=== PATIENT | female | born 1945 | race Caucasian/White ===

== ENCOUNTER → 2017-12-01 | Outpatient (CLI) | payer MEDICARE, BC ==
[~2017-12-01] MED LIST: OMNIPAQUE 350 MG/ML, 100ML BOTTLE ONE
== END | disposition home or self-care (01) ==
LOC: CFH 08:43
PROVIDERS: ATTEND Family Medicine
DX: I71.2 Thoracic aortic aneurysm, without rupture (principal)
CPT/HCPCS: 71275; 82565; Q9967

== ENCOUNTER 2018-01-20 17:22 | Emergency (ER) | payer MEDICARE, BC ==
[~2018-01-20] VITALS: Ht 180.3 cm; Wt 80.0 kg
[2018-01-20] MEDS ORDERED: LOSA1TAB25 PO (17:39)
[2018-01-20] MEDS ORDERED: SIMV5TAB5 PO (17:39)
[2018-01-20] MEDS ORDERED: ALEN70TA5 PO (17:39)
[2018-01-20] MEDS ORDERED: AMLO5TAB2 PO (17:39)
[2018-01-20] MEDS ORDERED: LEVE500T8 PO (17:39)
[2018-01-20] MEDS ORDERED: LEVO100T5 PO (17:39)
[2018-01-20] MEDS ORDERED: DIAZEPAM 5 MG TABLET ONE (18:24)
[2018-01-20 18:30] LABS: MICROSCOPIC AUTO
[2018-01-20] MEDS ORDERED: DIAZEPAM 5 MG TABLET PO ONE (18:30)
[2018-01-20 18:31] LABS: CULTURE INDICATED? NO
[2018-01-20 18:58] LABS: BASOPHILS # (AUTO) 0.03 x10^3/uL (0-0.1); BASOPHILS % (AUTO) 0 % (0-1); EOSINOPHILS # (AUTO) 0.18 x10^3/uL (0-0.4); EOSINOPHILS % (AUTO) 2 % (1-7); LYMPHOCYTES # (AUTO) 1.42 x10^3/uL (1-3.4); LYMPHOCYTES % (AUTO) 19 % (22-44); MD NO; MEAN CORPUSCULAR HEMOGLOBIN 33.3 pg (27.0-34.8); MEAN CORPUSCULAR HGB CONC 34.4 g/dL (32.4-35.8); MEAN CORPUSCULAR VOLUME 96.9 fL (80-100); MEAN PLATELET VOLUME 7.7 fL (7.4-10.4); MONOCYTES % (AUTO) 8 % (2-9); NEUTROPHILS # (AUTO) 5.22 x10^3/uL (1.8-6.8); NEUTROPHILS % (AUTO) 70 % (42-75); PLATELET COUNT 363 x10^3/uL (130-400); RED BLOOD COUNT 4.49 x10^6/uL (3.82-5.3); RED CELL DISTRIBUTION WIDTH 12.7 % (9.6-15.2)
[2018-01-20 19:08] LABS: ALANINE AMINOTRANSFERASE 22 U/L (12-78); ALBUMIN 4.4 g/dL (3.4-5.0); ANION GAP 5 mmol/L (5-15); CALCIUM 8.8 mg/dL (8.5-10.1); CHLORIDE 108 mmol/L (98-107); CREATININE 0.82 mg/dL (0.55-1.02)
[2018-01-20 19:10] LABS: ALKALINE PHOSPHATASE 61 U/L (45-117); BILIRUBIN,TOTAL 0.6 mg/dL (0.2-1.0); TOTAL PROTEIN 7.8 g/dL (6.4-8.2)
[2018-01-20 20:26] VITALS: BP 139/74
== END 2018-01-20 21:04 | disposition home or self-care (01) ==
LOC: ED 20:44
DX: R42 Dizziness and giddiness (principal); R11.0 Nausea
CPT/HCPCS: 36415; 70551; 80053; 81001; 83735; 85025; 93005; 99285

== ENCOUNTER → 2018-03-31 | Outpatient (CLI) | payer MEDICARE, BC ==
[~2018-03-31] MED LIST changes: +ALEN70TA5 PO; +AMLO5TAB2 PO; +LEVE500T8 PO; +LEVO100T5 PO; +LOSA1TAB25 PO; -OMNIPAQUE 350 MG/ML, 100ML BOTTLE ONE; +SIMV5TAB5 PO
== END | disposition home or self-care (01) ==
LOC: RAD 07:52
PROVIDERS: ATTEND Registered Nurse
DX: M50.10 Cervical disc disorder with radiculopathy, unspecified cervical region (principal)
CPT/HCPCS: 72156

== ENCOUNTER → 2018-06-08 | Outpatient (CLI) | payer MEDICARE, BC | END | disposition home or self-care (01) | LOC: CFH 08:26 | PROVIDERS: ATTEND Internal Medicine Cardiovascular Disease | DX: I08.2 Rheumatic disorders of both aortic and tricuspid valves (principal); I10 Essential (primary) hypertension; E78.5 Hyperlipidemia, unspecified | CPT/HCPCS: 93306 ==

== ENCOUNTER → 2019-11-08 | Outpatient (CLI) | payer BC ==
[~2019-11-08] MED LIST changes: -ALEN70TA5 PO; +ALEN70TA6 PO; +AMLO-150 PO; -AMLO5TAB2 PO; +SIMV5TAB14 PO; -SIMV5TAB5 PO
== END | disposition home or self-care (01) ==
LOC: CFH 08:12
PROVIDERS: ATTEND Internal Medicine Cardiovascular Disease
DX: I45.10 Unspecified right bundle-branch block (principal); I10 Essential (primary) hypertension
CPT/HCPCS: 78452; 93017; A9502

== ENCOUNTER → 2020-08-22 | Outpatient (CLI) | payer BC ==
[~2020-08-22] MED LIST changes: -ALEN70TA6 PO; +ALEN70TA66 PO
== END | disposition home or self-care (01) ==
LOC: CFH 06:59
PROVIDERS: ATTEND Internal Medicine Cardiovascular Disease
DX: I06.8 Other rheumatic aortic valve diseases (principal); E78.5 Hyperlipidemia, unspecified; I71.2 Thoracic aortic aneurysm, without rupture; I06.1 Rheumatic aortic insufficiency; I11.9 Hypertensive heart disease without heart failure
CPT/HCPCS: 93306

== ENCOUNTER → 2021-03-25 | Outpatient (CLI) | payer BC ==
[~2021-03-25] MED LIST changes: -ALEN70TA66 PO; +ALEN70TA77 PO
== END | disposition home or self-care (01) ==
LOC: RAD 13:14
PROVIDERS: ATTEND Physician Assistant Medical
DX: M71.21 Synovial cyst of popliteal space [Baker], right knee (principal); M79.604 Pain in right leg